=== PATIENT | female | born 1985 | race Hispanic/Latino ===

== ENCOUNTER 2020-12-13 12:56 | Emergency (ER) | payer SELFPAY ==
[2020-12-13] MEDS ORDERED: Ondansetron PF 4 MG/2 ML Vial ONE (13:45)
[2020-12-13 14:15] LABS: #Eosinphils 0.1 10x3/uL (0.0-0.5); #Monocytes 0.5 10x3/uL (0.0-1.1); %Basophils 0.5 % (0.0-2.0); %Eosinophils 1.3 % (0.0-6.0); %Lymphocytes 24.3 % (18.0-47.0); %Neutrophils 67.5 % (40.0-75.0); Hemoglobin 11.2 g/dL (12.0-15.5); Mean Corpuscular HGB CONC 32.3 g/dL (32.0-36.0); Mean Corpuscular Hemoglobin 21.3 pg (27.0-33.0); Mean Corpuscular Volume 66.1 fl (81.6-98.3); Platelet Count 255 10x3/uL (150-450); RBC Distribution Width 15.2 % (11.5-14.5); Red Blood Cell (RBC) Count 5.25 10x6/uL (3.90-5.03); White Blood Cell (WBC) Count 7.5 10x3/uL (3.5-10.5)
[2020-12-13 14:25] LABS: BHCG - Serum Negative (NEGATIVE); Pregs Control Background? CLEAR/WHITE (CLR/WHITE); Pregs Control Bar Appear? YES (CONTROL BAR)
[2020-12-13 14:27] LABS: ALT (SGPT) 28 U/L (8-55); AST (SGOT) 22 U/L (5-34); Albumin 4.1 g/dL (3.5-5.0); Alkaline Phosphatase 78 U/L (40-110); Anion Gap 14 mmol/L (10-20); BUN (Urea Nitrogen) 12 mg/dL (7.0-18.7); Bilirubin, Total 0.3 mg/dL (0.2-1.2); Calc. Creatinine Clearance 0 mL/min (70-130); Calcium 9.1 mg/dL (7.8-10.44); Carbon Dioxide 23 mmol/L (22-29); Chloride 107 mmol/L (98-107); Globulin 2.6 g/dL (2.4-3.5); Glucose 92 mg/dL (70-105); Lipase 73 U/L (8-78); Potassium 4.3 mmol/L (3.5-5.1); Protein, Total 6.7 g/dL (6.0-8.3); Sodium 140 mmol/L (136-145)
[2020-12-13 16:07] LABS: Microcytosis SLIGHT = 6-15 cells (100X) (0-5/hpf)
[2020-12-13 16:09] LABS: Platelet Morphology Comment Appears Adequate
[2020-12-13 18:16] LABS: Reflex for Review?? YES
== END 2020-12-13 15:39 | disposition home or self-care (01) ==
LOC: CSHERS 12:56
DX: R11.2 Nausea with vomiting, unspecified (principal); R19.7 Diarrhea, unspecified
CPT/HCPCS: 80053; 83690; 84703; 85025; 85060; 96372; 96374; J0500; J2405

== ENCOUNTER 2021-09-18 17:19 | Emergency (ER) | payer BC, OTHER ==
[2021-09-18] MEDS ORDERED: Ketorolac Tromethamine 30 MG/ML VIAL ONE (18:37)
[2021-09-18] MEDS ORDERED: Metoclopramide HCl 10 MG/2 ML VIAL ONE (18:37)
[2021-09-18] MEDS ORDERED: diphenhydrAMINE 50 MG/ML VIAL ONE (18:37)
== END 2021-09-18 19:41 | disposition home or self-care (01) ==
LOC: CSHERS 17:19
DX: G43.909 Migraine, unspecified, not intractable, without status migrainosus (principal); Z86.16 Personal history of COVID-19
CPT/HCPCS: 96374; 96375; J1200; J1885; J2765

== ENCOUNTER 2021-09-23 17:08 | Emergency (ER) | payer BC, OTHER ==
[2021-09-23] MEDS ORDERED: diphenhydrAMINE 50 MG/ML VIAL ONE (18:38)
[2021-09-23] MEDS ORDERED: Magnesium 2 GM/50 ML BAG (IN WATER) ONE (18:38)
[2021-09-23] MEDS ORDERED: Acetaminophen 500 MG TAB ONE (18:38)
[2021-09-23] MEDS ORDERED: Metoclopramide HCl 10 MG/2 ML VIAL ONE (18:38)
[2021-09-23 19:02] LABS: Bilirubin Neg (Negative); Blood, Urine Negative (Negative); Clarity Clear (Clear); Glucose, Urine (Dipstick) Normal (Negative); Ketone, Urine Negative (Negative); Leukocyte Negative (Negative); Nitrite Negative (Negative); Protein, Urine (Dipstick) Negative (Neg-Trace); Urobilinogen Normal mg/dL (Less than 2)
[2021-09-23 19:04] LABS: Pregnancy Test - Urine (BHCG) Negative (Negative); Pregu Control Background? CLEAR/WHITE (CLR/WHITE); Pregu Control Bar Appear? YES (CONTROL BAR)
== END 2021-09-23 19:37 | disposition home or self-care (01) ==
LOC: CSHERS 17:08
DX: G43.909 Migraine, unspecified, not intractable, without status migrainosus (principal)
CPT/HCPCS: 81003; 81025; 96365; 96368; 96375; J1200; J2765; J3475

== ENCOUNTER 2022-08-25 08:19 | Emergency (ER) | payer BC, SELFPAY | END 2022-08-25 09:15 | disposition home or self-care (01) | LOC: CSHERS 08:19 | DX: B34.9 Viral infection, unspecified (principal); G43.909 Migraine, unspecified, not intractable, without status migrainosus | CPT/HCPCS: 99283 ==

== ENCOUNTER 2023-06-21 16:06 | Emergency (ER) | payer BC, SELFPAY ==
[2023-06-21] MEDS ORDERED: diphenhydrAMINE 50 MG/ML VIAL ONE (16:36)
[2023-06-21] MEDS ORDERED: Prochlorperazine 10 MG/2 ML VIAL ONE (16:36)
[2023-06-21 17:03] LABS: #Basophils 0.1 10x3/uL (0.0-0.2); #Eosinphils 0.2 10x3/uL (0.0-0.5); #Monocytes 0.6 10x3/uL (0.0-1.1); #Neutrophils 5.9 10x3/uL (1.5-8.4); %Basophils 0.9 % (0.0-2.0); %Eosinophils 2.3 % (0.0-6.0); %Lymphocytes 22.6 % (18.0-47.0); %Monocytes 6.6 % (0.0-10.0); %Neutrophils 67.4 % (40.0-75.0); Hematocrit 34.2 % (34.9-44.5); Hemoglobin 10.9 g/dL (12.0-15.5); Mean Corpuscular HGB CONC 31.9 g/dL (32.0-36.0); Mean Corpuscular Hemoglobin 21.5 pg (27.0-33.0); Mean Corpuscular Volume 67.6 fl (81.6-98.3); Mean Platelet Volume 12.1 fl (7.4-10.4); Platelet Count 260 10x3/uL (150-450); RBC Distribution Width 14.6 % (11.5-14.5); Red Blood Cell (RBC) Count 5.06 10x6/uL (3.90-5.03); White Blood Cell (WBC) Count 8.7 10x3/uL (3.5-10.5)
[2023-06-21 17:11] LABS: BHCG - Serum Negative (NEGATIVE); Pregs Control Background? CLEAR/WHITE (CLR/WHITE); Pregs Control Bar Appear? YES (CONTROL BAR)
[2023-06-21 17:14] LABS: ALT (SGPT) 15 U/L (8-55); AST (SGOT) 19 U/L (5-34); Albumin 3.8 g/dL (3.5-5.0); Alkaline Phosphatase 76 U/L (40-110); Anion Gap 9 mmol/L (10-20); BUN (Urea Nitrogen) 10 mg/dL (7.0-18.7); Bilirubin, Total 0.3 mg/dL (0.2-1.2); Calc. Creatinine Clearance 0 mL/min (70-130); Calcium 8.6 mg/dL (7.8-10.44); Carbon Dioxide 24 mmol/L (22-29); Chloride 108 mmol/L (98-107); Estimated GFR 112; Globulin 2.5 g/dL (2.4-3.5); Glucose 113 mg/dL (70-105); Magnesium 1.7 mg/dL (1.6-2.6); Potassium 3.8 mmol/L (3.5-5.1); Protein, Total 6.3 g/dL (6.0-8.3); Sodium 137 mmol/L (136-145)
[2023-06-21] MEDS ORDERED: Ketorolac Tromethamine 30 MG/ML VIAL ONE (18:17)
== END 2023-06-21 18:24 | disposition home or self-care (01) ==
LOC: CSHERS 16:06
DX: G43.909 Migraine, unspecified, not intractable, without status migrainosus (principal); H72.91 Unspecified perforation of tympanic membrane, right ear
CPT/HCPCS: 80053; 83735; 84703; 85025; 96361; 96374; 96375; J0780; J1200; J1885

== ENCOUNTER 2023-12-18 05:32 | Inpatient (IN) | payer BC ==
[2023-12-18] MEDS ORDERED: Ondansetron PF 4 MG/2 ML Vial ONE (06:08)
[2023-12-18] MEDS ORDERED: Morphine 4 MG/ML VIAL ONE (06:08)
[2023-12-18] MEDS ORDERED: Piperacillin/Tazobactam 4.5 GM VIAL ONE (06:09)
[2023-12-18 06:15] LABS: #Basophils 0.05 10x3/uL (0.0-0.2); #Eosinphils 0.05 10x3/uL (0.0-0.5); #Monocytes 0.97 10x3/uL (0.0-1.1); #Neutrophils 8.01 10x3/uL (1.5-8.4); %Basophils 0.5 % (0.0-2.0); %Eosinophils 0.5 % (0.0-6.0); %Lymphocytes 14.6 % (18.0-47.0); %Monocytes 9.1 % (0.0-10.0); %Neutrophils 75.1 % (40.0-75.0); Hematocrit 33.3 % (34.9-44.5); Mean Corpuscular Hemoglobin 21.6 pg (27.0-33.0); Mean Corpuscular Volume 65.3 fl (81.6-98.3); Mean Platelet Volume 10.5 fl (7.4-10.4); Platelet Count 217 10x3/uL (150-450); RBC Distribution Width 16.1 % (11.5-14.5); White Blood Cell (WBC) Count 10.7 10x3/uL (3.5-10.5)
[2023-12-18 06:35] LABS: ALT (SGPT) 19 U/L (8-55); AST (SGOT) 20 U/L (5-34); Albumin 3.8 g/dL (3.5-5.0); Alkaline Phosphatase 72 U/L (40-110); Anion Gap 14 mmol/L (10-20); BUN (Urea Nitrogen) 10 mg/dL (7.0-18.7); Bilirubin, Total 0.6 mg/dL (0.2-1.2); Calc. Creatinine Clearance 0 mL/min (70-130); Calcium 9.1 mg/dL (7.8-10.44); Carbon Dioxide 18 mmol/L (22-29); Chloride 109 mmol/L (98-107); Estimated GFR 107; Globulin 3.2 g/dL (2.4-3.5); Glucose 101 mg/dL (70-105); Potassium 3.9 mmol/L (3.5-5.1); Sodium 137 mmol/L (136-145)
[2023-12-18 06:59] LABS: Microcytosis SLIGHT = 6-15 cells (100X) (0-5/hpf); Ovalocytes SLIGHT = 2-5 cells (100X) (0-1/hpf); Platelet Adequacy Comment Appears Adequate
[2023-12-18] MEDS: HYDROcodone/Acetaminophen 5/325 mg Tablet PO PRN (09:55)
[2023-12-18] MEDS: Morphine 4 MG/ML VIAL SLOW IVP SCH (10:05)
[2023-12-18] MEDS: Piperacillin/Tazobactam 3.375 GM in Sodium Chloride 0.9% 100 ML IVPB SCH (10:08)
[2023-12-18] MEDS ORDERED: Iopamidol 300 61% 100 ML VIAL FS ONE (12:25)
[2023-12-18 12:45] VITALS: BMI 29.3
[2023-12-18] MEDS: Ciprofloxacin HCL/Dexameth Otic Drops 7.5 ml Bottle R EAR SCH (14:18)
[2023-12-18] MEDS: Ondansetron ODT 4 MG TAB PO PRN (14:18)
[2023-12-18] MEDS: Sodium Chloride 0.9% 1,000 ML IV SCH (14:25)
[2023-12-18] MEDS: VANCOMYCIN 2 GRAM/400 ML BAG 2 GM in Premix 1 BAG IVPB SCH (15:31)
[2023-12-18 16:24] LABS: Hemoglobin A1c 5.4 % (4.0-6.0)
[2023-12-19] MEDS: Morphine 2 MG/ML VIAL SLOW IVP PRN (01:30)
[2023-12-19] MEDS: VANCOMYCIN 1.25 GM/250 ML BAG 1.25 GM in Premix 1 BAG IVPB SCH (06:26)
[2023-12-19] MEDS: Ferrous Sulfate 325 MG TAB PO SCH ×2 (08:36→22:30)
[2023-12-19] MEDS: Enoxaparin 40 MG (0.4 mL) SYRINGE SC SCH (08:36)
[2023-12-19] MEDS: FLUoxetine HCl 20 MG CAP PO SCH (08:37)
[2023-12-19 09:02] LABS: #Basophils 0.04 10x3/uL (0.0-0.2); #Eosinphils 0.13 10x3/uL (0.0-0.5); #Monocytes 0.63 10x3/uL (0.0-1.1); #Neutrophils 4.86 10x3/uL (1.5-8.4); %Basophils 0.6 % (0.0-2.0); %Eosinophils 1.9 % (0.0-6.0); %Monocytes 9.1 % (0.0-10.0); Mean Corpuscular HGB CONC 32.3 g/dL (32.0-36.0); Mean Corpuscular Hemoglobin 21.7 pg (27.0-33.0); Mean Corpuscular Volume 67.2 fl (81.6-98.3); Mean Platelet Volume 11.1 fl (7.4-10.4); Platelet Count 217 10x3/uL (150-450); RBC Distribution Width 16.1 % (11.5-14.5); Red Blood Cell (RBC) Count 4.61 10x6/uL (3.90-5.03); White Blood Cell (WBC) Count 6.9 10x3/uL (3.5-10.5)
[2023-12-19 10:49] LABS: Iron 12 ug/dL (50-170); Iron Binding Capacity, Total 261 mcg/dL (265-497)
[2023-12-19 10:52] LABS: Iron 32 ug/dL (50-170); Iron Binding Capacity, Total 261 mcg/dL (265-497)
[2023-12-19 10:54] LABS: Vancomycin, Random 7.5 ug/mL (See Comment)
[2023-12-19 11:02] LABS: Chloride 109 mmol/L (98-107); Potassium 3.9 mmol/L (3.5-5.1); Sodium 138 mmol/L (136-145)
[2023-12-19 11:03] LABS: Anion Gap 10 mmol/L (10-20); BUN (Urea Nitrogen) 6 mg/dL (7.0-18.7); Calc. Creatinine Clearance 137 mL/min (70-130); Carbon Dioxide 23 mmol/L (22-29); Estimated GFR 112; Glucose 86 mg/dL (70-105)
[2023-12-19] MEDS: Vancomycin 1.5 GRAM/300 ML BAG 1.5 GM in Premix 1 BAG IVPB SCH (14:36)
[2023-12-20 05:13] LABS: Anion Gap 10 mmol/L (10-20); BUN (Urea Nitrogen) 6 mg/dL (7.0-18.7); Calc. Creatinine Clearance 133 mL/min (70-130); Calcium 8.4 mg/dL (7.8-10.44); Carbon Dioxide 24 mmol/L (22-29); Chloride 108 mmol/L (98-107); Estimated GFR 110; Glucose 107 mg/dL (70-105); Potassium 3.9 mmol/L (3.5-5.1); Sodium 138 mmol/L (136-145)
[2023-12-20 05:23] LABS: Vancomycin, Random 45.1 ug/mL (See Comment)
[2023-12-20] MEDS: Acetaminophen 325 MG TAB PO PRN (10:18)
[2023-12-20 15:10] LABS: Vancomycin, Random 12.2 ug/mL (See Comment)
[2023-12-21 04:53] LABS: Anion Gap 12 mmol/L (10-20); BUN (Urea Nitrogen) 9 mg/dL (7.0-18.7); Calc. Creatinine Clearance 124 mL/min (70-130); Calcium 8.7 mg/dL (7.8-10.44); Carbon Dioxide 25 mmol/L (22-29); Chloride 107 mmol/L (98-107); Estimated GFR 102; Glucose 91 mg/dL (70-105); Potassium 4.5 mmol/L (3.5-5.1); Sodium 139 mmol/L (136-145)
[2023-12-21 08:40] VITALS: BP 123/61; TEMP 98.1
== END 2023-12-21 09:43 | disposition home or self-care (01) | DRG 156 ==
LOC: CSHERS 05:32 → CSHTELE 08:56 → OBSVTOIN 12-19 13:45
PROVIDERS: ADMIT Internal Medicine; ATTEND Family Medicine
DX: H92.01 Otalgia, right ear (principal); F41.9 Anxiety disorder, unspecified; F32.A Depression, unspecified; D50.8 Other iron deficiency anemias; Z79.891 Long term (current) use of opiate analgesic; Z90.49 Acquired absence of other specified parts of digestive tract
CPT/HCPCS: 36415; 70481; 80048; 80053; 80202; 82728; 83036; 83540; 83550; 83605; 85025; 86140; 86141; 87040; 96365; 96375; J1650; J2270; J2272; J2405; J2543; J3370; J3490; J7050; Q0162; Q9967